=== PATIENT | female | born 1985 | race Caucasian/White ===

== ENCOUNTER → 2018-11-09 08:23 | Outpatient (CLI) | payer MEDICAID ==
[~2018-11-09 08:23] MED LIST: IBUPROFEN800 MG PO; PERCOCET 7.5/321 TAB PO; PREPLUS CA-FE1 EACH PO
[2019-01-31 19:42] VITALS: BMI 45.0
== END | disposition home or self-care (01) ==
LOC: D.LDO 08:23
PROVIDERS: ATTEND Obstetrics & Gynecology
DX: O36.8190 Decreased fetal movements, unspecified trimester, not applicable or unspecified (principal); Z3A.00 Weeks of gestation of pregnancy not specified

== ENCOUNTER → 2019-01-03 15:30 | Outpatient (CLI) | payer MEDICAID | END | disposition home or self-care (01) | LOC: D.LDO 15:30 | PROVIDERS: ATTEND Obstetrics & Gynecology | DX: O36.8190 Decreased fetal movements, unspecified trimester, not applicable or unspecified (principal) ==

== ENCOUNTER 2019-01-24 11:45 | Inpatient (IN) | payer MEDICAID ==
[~2019-01-24] VITALS: Ht 160 cm; Wt 112.5 kg
[2019-01-24] MEDS ORDERED: PREPLUS CA-FE1 EACH PO (11:58)
[2019-01-24 12:00] VITALS: BP 120/66; Ht 160 cm; Wt 112.5 kg
[2019-01-24 12:35] LABS: HEMATOCRIT 35.8 % (36.0-48.0); HEMOGLOBIN 12.5 g/dL (12-16); MCHC 34.9 g/dL (31.0-37.0); MCV 88.8 fL (80.0-100.0); MEAN PLATELET VOLUME 8.9 fL (7.4-10.4); RBC 4.03 10x6/uL (4.00-5.40); RDW 13.7 % (11.5-14.5); WBC 12.7 10x3/uL (4.8-10.8)
[2019-01-25 07:14] LABS: RAPID PLASMA REAGIN Non Reactive (Non Reactive)
== END 2019-01-25 15:40 | disposition home or self-care (01) | DRG 833 ==
LOC: D.LDO 11:45 → D.LD 11:58
PROVIDERS: ADMIT Obstetrics & Gynecology; ATTEND Obstetrics & Gynecology
PROC: 3E033VJ Introduction of Other Hormone into Peripheral Vein, Percutaneous Approach (ICD-10-PCS; principal; 2019-01-25)
DX: O61.0 Failed medical induction of labor (principal); Z3A.38 38 weeks gestation of pregnancy

== ENCOUNTER → 2019-01-28 08:20 | Outpatient (CLI) | payer MEDICAID ==
[2019-01-24 12:00] VITALS: BMI 44.0
== END | disposition home or self-care (01) ==
LOC: D.LDO 08:20
PROVIDERS: ATTEND Obstetrics & Gynecology
DX: O26.893 Other specified pregnancy related conditions, third trimester (principal); Z3A.39 39 weeks gestation of pregnancy

== ENCOUNTER 2019-01-31 15:35 | Inpatient (IN) | payer MEDICAID ==
[~2019-01-31] VITALS: Ht 160 cm; Wt 115.2 kg
[~2019-01-31 15:35] MED LIST changes: -IBUPROFEN800 MG PO; -PERCOCET 7.5/321 TAB PO
[2019-01-31 16:23] LABS: BASOPHILS 0.1 % (0-2); EOSINOPHILS 0.9 % (0-7); HEMATOCRIT 36.9 % (36.0-48.0); IMMATURE GRANULOCYTES 0.3 % (0-5); LYMPHOCYTES 18.8 % (15-50); MCHC 35.2 g/dL (31.0-37.0); MCV 88.1 fL (80.0-100.0); MEAN PLATELET VOLUME 8.8 fL (7.4-10.4); MONOCYTES 5.4 % (2-11); NEUTROPHILS 74.5 % (40-80); PLATELET COUNT 257 10x3/uL (130-400); RBC 4.19 10x6/uL (4.00-5.40); RDW 13.6 % (11.5-14.5); WBC 12.7 10x3/uL (4.8-10.8)
[2019-01-31 16:31] LABS: APPEARANCE CLOUDY (CLEAR); BILIRUBIN NEGATIVE (NEGATIVE); COLOR YELLOW (YELLOW); GLUCOSE NEGATIVE (NEGATIVE); KETONE NEGATIVE (NEGATIVE); NITRITE NEGATIVE (NEGATIVE); PROTEIN TRACE mg/dL (NEGATIVE); UROBILINOGEN NORMAL (NORMAL)
[2019-01-31 16:33] LABS: AMORPHOUS SEDIMENT <1+ /lpf (NONE SEEN); BACTERIA MODERATE /hpf (NONE SEEN); RED CELLS - URINE 0-5 /hpf (0-5); WHITE CELLS - URINE 0-5 /hpf (0-5)
[2019-01-31 17:06] LABS: ALBUMIN 2.4 g/dL (3.4-5.0); ALKALINE PHOSPHATASE 92 U/L (46-116); ALT (SGPT) 13 U/L (10-68); BILIRUBIN - INDIRECT 0.18 mg/dL (0.00-1.00); CALC OSMOLALITY 277 mosm/kg (275-300); CALCIUM 9.1 mg/dL (8.5-10.1); CARBON DIOXIDE 25.6 mmol/L (21.0-32.0); CHLORIDE - SERUM 106 mmol/L (98-107); CREATININE - SERUM 0.7 mg/dL (0.6-1.3); GLUCOSE 115 mg/dL (74-106); POTASSIUM - SERUM 3.7 mmol/L (3.5-5.1); PROTEIN - SERUM 5.8 g/dL (6.4-8.2); SODIUM 140 mmol/L (136-145); UREA NITROGEN 7 mg/dL (7-18); URIC ACID 4.3 mg/dL (2.6-7.2); eGFR NON AFRICAN AMERICAN > 90 mL/min (90-120)
[2019-01-31 17:14] LABS: BILIRUBIN - DIRECT 0.02 mg/dL (0.00-0.30)
[2019-01-31 19:42] VITALS: BP 119/61; Ht 160 cm; Wt 115.2 kg
[2019-02-01 08:11] LABS: RAPID PLASMA REAGIN Non Reactive (Non Reactive)
[2019-02-02] VITALS (10 sets, daily range): BP systolic 120–144; BP diastolic 58–87
--- NOTE | 2019-02-02 19:05 | NUR ---
BABY BORN AT 89
--- NOTE | 2019-02-02 19:34 | NUR ---
REC'D BACK TO ROOM 1278 FROM PACU. ALERT AND ORIENTED X3. VSS. FUNDUS FIRM, MIDLINE AND U1 WITH SCANT RUBRA LOCHIA, NO CLOTS NOTED. 800 MLS CLEAR LIGHT YELLOW URINE EMPTIED FROM TOSCANO. BREATH SOUNDS CLEAR AND EQUAL BILATERALLY. PAIN 3-4/10, DENIES NEED FOR INTERVENTION AT THIS TIME, REPORTS THAT TORADOL HAS HELPED PAIN ALREADY. SCD'S PLACED TO BLE. 2+ BLE EDEMA NOTED. PIV TO R HAND INFUSING WITH LR, NO S/S OF INFILTRATION NOTED. BOWEL SOUNDS HYPOACTIVE X4 QUADRANTS. DRSG TO LOWER TRANSVERSE ABD INCISION, CLEAN DRY AND INTACT WITH NO DRAINAGE NOTED. INSTRUCTED ON INCENTIVE SPIROMETER USE WITH RETURN DEMONSTRATION FROM PT X3 WITH GOOD EFFORT. EDUCATED ON IMPORTANCE OF TURN COUGH AND DEEP BREATHING Q 2HR, VERBALIZES UNDERSTANDING. COUGH AND DEEP BREATHING DONE WITH GOOD EFFORT. INFANT TO ROOM BY NBN RN, PT REQUESTING TO BF AND REQUESTING ASSISTANCE WITH BF. UNABLE TO FEEL BLE OR LIFT OFF OF BED AT THIS TIME. BED IN LOW POSITION WITH UPPER SIDE RAILS RAISED X2. CALL LIGHT AND PHONE WITHIN REACH. WILL CONTINUE TO MONITOR.
--- NOTE | 2019-02-02 19:51 | NUR ---
V/S REMAIN STABLE. PT BF . FUNDUS REMAINS FIRM, MIDLINE AND U1 WITH SCANT RUBRA LOCHIA, NO CLOTS NOTED. DENIES NAUSEA. ICE WATER PROVIDED AND ENCOURAGED TO SIP SLOWLY. PAIN 5/10, ABD SORENESS AND TENDERNESS, DENIES NEED FOR INTERVENTION. POC DISCUSSED WITH PT, VERBALIZES UNDERSTANDING AND STATES THAT SHE WILL NOTIFY RN WHEN PAIN MEDS ARE NEEDED. REFUSES NICOTINE PATCH AT THIS TIME. RYAN PEDERSON RN REMAINS AT BEDSIDE ASSISTING PT WITH BF.
--- NOTE | 2019-02-02 19:55 | NUR ---
NS WITH 20 UNITS OF PIT HUNG TO INFUSE AT 125 MLS/HR PER ORDER. PT CONTINUES TO BF . ICE PACK PLACED PER ORDER.
--- NOTE | 2019-02-02 20:01 | NUR ---
BF INFANT AT THIS TIME. RYAN PEDERSON RN AT BEDSIDE EDUCATING AND ASSIST PT WITH BF. PT DENIES NEEDS AT THIS TIME.
--- NOTE | 2019-02-02 20:35 | NUR ---
V/S REMAIN STABLE. FUNDUS REMAINS FIRM, MIDLINE AND U1 WITH SMALL RUBRA LOCHIA, NO CLOTS NOTED. DONE BF. 200 MLS CLEAR LIGHT YELLOW URINE EMPTIED FROM TOSCANO. PAIN 3-4/10 AT REST, DENIES NEED FOR INTERVENTION. COUGH, DEEP BREATHING, AND INCENTIVE SPIROMETER DONE WITH GOOD EFFORT. PERICARE DONE, PERIPADS CHANGED. DENIES NEEDS. CONTINUES TO CALERO WITH . WILL CONTINUE TO MONITOR. BED IN LOW POSITION WITH UPPER SIDE RAILS RAISED X2. CALL LIGHT AND PHONE WITHIN REACH. PT NOW ABLE TO LIFT FEET OFF OF BED WITH EFFORT.
--- NOTE | 2019-02-02 20:41 | NUR ---
SIGNIFICANT OTHER TO BEDSIDE.
--- NOTE | 2019-02-02 20:42 | NUR ---
SIGNIFICANT OTHER CALLED VIA CELL PHONE NUMBER PROVIDED PER PT REQUEST TO NOTIFY THAT SHE HAD COMPLETED BF AND SHE WAS READY FOR VISITOR.
--- NOTE | 2019-02-02 21:20 | NUR ---
VSS. FUNDUS REMAINS FIRM MIDLINE AND U1 WITH MODERATE AMT RUBRA LOCHIA. GOLF BALL SIZED CLOT PASSED WITH MASSAGE. PERICARE DONE. TOWELS, CHUX AND PERIPADS CHANGED. INCENTIVE SPIROMETER DONE X2, COUGH AND DEEP BREATHING DONE WITH GOOD EFFORT. REPOSITIONED FROM BACK TO LEFT SIDE WITH PILLOW BEHIND BACK FOR COMFORT AND SUPPORT. SCD'S REMAIN ON BLE. FOB AT BEDSIDE BONDING WITH , SUPPORTIVE AND ATTENTIVE TO PT AND INFANT NEEDS. CHICKEN BROTH, ICE WATER, JELLO, AND POPICLE PROVIDED PER REQUEST. DENIES ADDITIONAL NEEDS. BED IN LOW POSITION WITH UPPER SIDE RAILS RAISED X2. CALL LIGHT AND PHONE WITHIN REACH. WILL CONTINUE TO MONITOR.
--- NOTE | 2019-02-02 21:50 | NUR ---
INFANT CRYING IN OPEN CRIB, ROOTING NOTED. HANDED TO PT AND ASSISTED WITH LATCHING FOR BF PER PT REQUEST. GOOD LATCH, SUCK AND SWALLOW NOTED. PT REPORTS THAT SIGNIFICANT OTHER WENT TO GET HER A DRINK FROM [employer]. C/O ABD PAIN AND SORENESS 6-12/12, PAIN MEDICATION OPTIONS DISCUSSED. REQUEST IV DILAUDAD.
--- NOTE | 2019-02-02 22:01 | NUR ---
C/O ABD SORENESS AND CRAMPING 12/12. HYDROMORPHONE GIVEN PER ORDER AND REQUEST. EDUCATED ON MED AND POSSIBLE SIDE EFFECTS. VERBALIZES UNDERSTANDING. BF INFANT AT THIS TIME. RN REMAINS AT BEDSIDE PT WHILE BF INFANT D/T PT REPORTING FEELING LIKE SHE WAS DIZZY AND DROWSY.
--- NOTE | 2019-02-02 22:25 | NUR ---
THIS RN REMAINED AT BEDSIDE WITH PT WHILE BF. BF COMPLETED AT THIS TIME AND TO NBN. PAIN REASSESSMENT, 0. PT REPORTS THAT SHE IS GOING TO SLEEP WHILE INFANT IS GETTING BATH. 325 MLS CLEAR LIGHT YELLOW URINE EMPTIED FROM TOSCANO. VSS. FUNDUS FIRM MIDLINE AND U1 WITH SMALL AMT RUBRA LOCHIA. ICE WATER AND ICE PACK PROVIDED. DENIES ADDITIONAL NEEDS. LIGHTS OFF. SCD'S ON BLE. BED IN LOW POSITION WITH UPPER SIDE RAILS RAISED X2. CALL LIGHT AND PHONE WITHIN REACH. REPORTS THAT SHE CAN FEEL UP TO KNEES AND CAN NOW LIFT BLE OFF OF BED WITHOUT EFFORT. WILL CONTINUE TO MONITOR.
--- NOTE | 2019-02-02 23:36 | NUR ---
RESTING QUIETLY IN BED IN SEMI-FOWLERS POSITION. REPOSITIONED INDEPENDENTLY FROM LEFT SIDE TO BACK. PERICARE DONE, PADS CHANGED. VSS. PAIN 3/10, DENIES NEED FOR INTERVENTION AT THIS TIME. FUNDUS FIRM, MIDLINE AND U1 WITH SMALL AMT RUBRA LOCHIA. 200 MLS EMPTIED FROM TOSCANO, CLEAR LIGHT YELLOW URINE. REQUEST NICOTINE PATCH, PLACED TO RIGHT UPPER ARM. EDUCATED ON PATCH AND POSSIBLE SIDE EFFECTS WELL IMPORTANCE OF REMOVING PATCH BEFORE PLACING ANOTHER PATCH OR SMOKING CIGARETTES, VERBALIZES UNDERSTANDING. NBN CALLED TO CHECK ON , PT UPDATED. SCD'S TO BLE. LOWER TRANSVERSE ABD INCISION REMAINS COVERED WITH DRSG, DRSG REMAINS CLEAN DRY AND INTACT WITH NO DRAINAGE. ICE PACK REPLACED. JELLO, ICE PACK, AND ICE WATER PROVIDED PER PT REQUEST. DENIES ADDITIONAL NEEDS. BED IN LOW POSITION WITH UPPER SIDE RAILS RAISED X2. CALL LIGHT AND PHONE WITHIN REACH. WILL CONTINUE TO MONITOR.
[2019-02-03 00:31] VITALS: BP 136/74
--- NOTE | 2019-02-03 00:31 | NUR ---
BONDING WITH INFANT AND CONVERSING WITH VISITOR. VSS. FUNDUS REMAINS FIRM, MIDLINE AND U1 WITH SMALL AMT RUBRA LOCHIA, NO CLOTS. DENIES NEEDS AT THIS TIME. SCD'S REMAIN ON BLE. INCENTIVE SPIROMETER USED X6 WITH GOOD EFFORT. COUGH AND DEEP BREATHING DONE WITH GOOD EFFORT. ABLE TO MOVE BLE INDEPENDENTLY. DENIES NEEDS. BED IN LOW POSITION WITH UPPER SIDE RAILS RAISED X2. CALL LIGHT AND PHONE WITHIN REACH. WILL CONTINUE TO MONITOR.
--- NOTE | 2019-02-03 00:50 | NUR ---
ANCEF NOT AVAILABLE ON UNIT FOR RN TO PULL. GLOBAL FIND DONE BY THIS RN, MED AVAILABLE ON MED 2, ICU, OP, AND OR. CHINTAN ABRAMSEDUCATIONAL ADVISOR NOTIFIED AND WILL BRING MED TO UNIT.
--- NOTE | 2019-02-03 01:19 | NUR ---
TORADOL GIVEN PER ORDER. PAIN 3/10, ABD CRAMPING, ACHING, AND SORENESS. VSS. FUNDUS REMAINS FIRM, MIDLINE AND U1 WITH SMALL AMT RUBRA LOCHIA, NO CLOTS NOTED. IN FOB ARMS. ICE WATER PROVIDED PER PT REQUEST. DENIES ADDITIONAL NEEDS. BED IN LOW POSITION WITH UPPER SIDE RAILS RAISED X2. CALL LIGHT AND PHONE WITHIN REACH. WILL CONTINUE TO MONITOR.
--- NOTE | 2019-02-03 01:52 | NUR ---
ALIZA, PEDIATRIC CARE COORDINATOR ON UNIT WITH ANCEF.
--- NOTE | 2019-02-03 01:58 | NUR ---
ANCEF HUNG PER ORDER. PT INDEPENDENTLY REPOSITIONED FROM BACK TO RIGHT TO SIDE. REPORTS THAT SHE USED INCENTIVE SPIROMETER AND DID COUGHING AND DEEP BREATHING AND PAIN HAS INCREASED TO 8/10. REQUESTS PO PAIN MED INSTEAD OF IV PAIN MEDS, STATES THAT HYDROMORPHONE MADE HER TO DROWSY AND DIZZY. PERCOCET 10/325 GIVEN PER ORDER AND PT REQUEST. EDUCATED ON MED, VERBALIZES UNDERSTANDING. TOSCANO D/C'D WITH 220 MLS YELLOW URINE EMPTIED. INSTRUCTED ON USING CALL FOR ASSISTANCE OOB THE FIRST TIME, VERBALIZES UNDERSTANDING AND DENIES QUESTIONS. RESTING IN OPEN CRIB AT BEDSIDE. SIGNIFICANT OTHER AT BEDSIDE SUPPORTIVE AND ATTENTIVE TO PT AND NEEDS. BED IN LOW POSITION. CALL LIGHT AND PHONE WITHIN REACH. WILL CONTINUE TO MONITOR.
--- NOTE | 2019-02-03 02:43 | NUR ---
ANCEF INFUSION COMPLETED. RT HAND PIV SL. BF AT THIS TIME. PAIN REASSESSMENT COMPLETED, 1-07/15. DENIES NEED FOR ADDITIONAL INTERVENTION. SIGNIFICANT OTHER RESTING QUIETLY ON COUCH. DENIES NEED. BED IN LOW POSITION WITH UPPER SIDE RAILS RAISED X2. CALL LIGHT AND PHONE WITHIN REACH. WILL CONTINUE TO MONITOR.
--- NOTE | 2019-02-03 03:25 | NUR ---
CONTINUES TO BF INFANT. DENIES NEEDS AND PAIN. WILL CONTINUE TO MONITOR.
--- NOTE | 2019-02-03 04:36 | NUR ---
UP TO BR TO VOID. VOIDED 500 MLS IN HAT. HALF DOLLAR SIZED CLOT IN HAT FOLLOWING VOID. PERICARE DONE PER PT. PERIPADS AND PANTIES PROVIDED. GOWN AND LINENS CHANGED. ORAL CARE PER PT. COMPLAINED OF DIZZINESS WHILE IN BR, ENCOURAGED TO TAKE SLOW DEEP BREATHS, REPORTS THAT DIZZINESS SUBSIDED AMBULATED TO COUCH IN ROOM, REQUEST TO SIT ON COUCH WITH SIGNIFICANT OTHER. DENIES DIZZINESS. SIGNIFICANT OTHER STATES THAT HE WILL REMAIN WITH PT AND CALL FOR ASSISTANCE IF PT C/O DIZZINESS. CALL LIGHT AND PHONE PLACED WITHIN REACH. OF PT. DENIES ADDITIONAL NEEDS. INFANT PLACED IN MOM'S ARM PER REQUEST.
[2019-02-03 05:34] VITALS: BP 113/64
--- NOTE | 2019-02-03 05:34 | NUR ---
PT BACK TO BED WITH STANDBY ASSIST. STEADY GAIT NOTED. DENIES DIZZINESS AT THIS TIME. VSS. C/O PAIN 7-01/12, ABD SORENESS, INCISIONAL BURNING AND STINGING, PERCOCET GIVEN PER PT REQUEST AND ORDER. REFUSES SCD'S AT THIS TIME. ICE WATER, ICE PACK AND CHOCOLATE PUDDING PROVIDED PER REQUEST. DENIES ADDITIONAL NEEDS. BED IN LOW POSITION WITH UPPER SIDE RAILS RAISED X2. CALL LIGHT AND PHONE WITHIN REACH. SIGNIFICANT OTHER RESTING ON COUCH. RYAN PEDERSON RN IN ROOM DISCUSSING CARE WITH PT. WILL CONTINUE TO MONITOR.
[2019-02-03 06:03] LABS: MCH 30.7 pg (26.0-34.0); MCHC 34.4 g/dL (31.0-37.0); MCV 89.4 fL (80.0-100.0); MEAN PLATELET VOLUME 8.8 fL (7.4-10.4); RBC 3.58 10x6/uL (4.00-5.40); RDW 13.8 % (11.5-14.5); WBC 12.7 10x3/uL (4.8-10.8)
--- NOTE | 2019-02-03 06:15 | NUR ---
PAIN REASSESSMENT COMPLETED. RESTING QUIETLY WITH EYES CLOSED IN SEMI-FOWLERS POSITION. RESP REGULAR AND UNLABORED, NO S/S OF DISTRESS NOTED. BED IN LOW POSITION WITH UPPER SIDE RAILS RAISED X2. CALL LIGHT AND PHONE WITHIN REACH. WILL CONTINUE MONITOR AND ASSIST PRN.
--- NOTE | 2019-02-03 06:39 | NUR ---
SCHEDULED TORADOL GIVEN PER ORDER. RESTING QUIETLY WITH EYES CLOSED IN SEMI FOWLERS POSITION. AROUSES EASILY TO VOICE. DENIES PAIN AND NEEDS. BED IN LOW POSITION WITH UPPER SIDE RAILS RAISED X2. CALL LIGHT AND PHONE WITHIN REACH.
--- NOTE | 2019-02-03 06:50 | NUR ---
REPORT GIVEN TO Familia BURT
--- NOTE | 2019-02-03 07:00 | NUR ---
ASSUMED CARE OF THIS PATIENT. CURRENTLY SLEEPING. RESP EVEN. FOB SLEEPING ON COUCH. WILL COMPLETE SHIFT ASSESSMENT WHEN AWAKE.
--- NOTE | 2019-02-03 07:40 | NUR ---
SITTING UP IN BED HOLDING . WAITING ON NURSERY RN TO RETURN TO HELP WITH . SAYS INFANT DOESN'T WANT TO WAKE UP. EXPLAINED THAT IS NOT UNCOMMON IN FIRST 24 HOURS AFTER DELIVERY. DISCUSSED WAYS TO WAKE UP. ALSO DISCUSSED COLOSTRUM PRODUCTION. SHE WILL TRY TO WAKE UP. TO CALL IF ANYTHING IS NEEDED. FOB SLEEPING ON COUCH. WILL COMPLETE ASSESSMENT AFTER BREAKFAST AND . SIDE RAILS UP X 2, CALL LIGHT IN REACH. REGULAR BREAKFAST AT BEDSIDE.
[2019-02-03 08:34] VITALS: BP 107/54
--- NOTE | 2019-02-03 08:34 | NUR ---
SHIFT ASSESSMENT COMPLETED. ICE PACK IN PLACE OVER LTCS ABD DRESSING. 0/10 PAIN. SCD'S REPLACED ON LE. NO REQUESTS. SLEEPING IN CRIB. SIDERAILS UP X 2, CALL LIGHT IN REACH. FOB SLEEPING ON COUCH. DESIRES TO SLEEP AT THIS TIME. LIGHTS TURNED ON LOW. TO CALL IF ANYTHING IS NEEDED.
--- NOTE | 2019-02-03 10:10 | NUR ---
SITTING UP IN BED HOLDING IN ARMS. INFANT IS SLEEPING, PT ASKED IF SHE SHOULD WAKE UP TO FEED, INSTRUCTED PT IF TIME TO EAT THEN IT IS OK TO WAKE HER UP AND TRY. DISCUSSED METHODS TO WAKE INFANT UP. DENIES PAIN OR NEEDING ANYTHING AT THIS TIME. SIDERAILS UP X 2, CALL LIGHT IN REACH. TO CALL WHEN READY TO GET OOB OR IF NEEDING ANYTHING. FOB SLEEPING ON COUCH.
--- NOTE | 2019-02-03 11:13 | NUR ---
PERCOCET 5 MG GIVEN PO FOR RELIEF OF 3-4/10 INCISIONAL PAIN. ANTIOBITIC COMPLETE, SALINE LOCK FLUSHED WITH NS. ASSISTED UP TO AMBULATE TO BATHROOM VOIDED 600 ML URINE, LOCHIA RUBRA SMALL TO MOD. PERICARE DONE WITH WARM WATER, CLEAN PADS X 2 PLACED AND CLEAN UNDERWEAR GIVEN. AMBULATED BACK TO COUCH TO TRY TO FEED AGAIN. FOB AWAKE SITTING ON COUCH HOLDING INFANT. WILL SHOWER AND AMBULATE IN WALKER AFTER LUNCH. DR SOL CALLED EARLIER AND WILL BE IN LATER TO DAY TO MAKE ROUNDS.
--- NOTE | 2019-02-03 13:48 | NUR ---
RETURNED TO BED AFTER SITTING UP ON COUCH. C/O UPPER ABD GAS PAIN AND SLIGHT NAUSEA. VOIDED WITHOUT DIFF PRIOR TO RETURNING TO BED. SCHEDULED TORADOL 30 MG GIVEN IVP, SALINE LOCK FLUSHED AFTER MED. MYLICON 80 MG GIVEN PO FOR RELIEF OF GAS. POSITIONED TO LEFT SIDE WITH HOB FLAT. TO NURSERY PER PT REQUEST. DESIRES TO REST NOW. 3/10 PAIN. WILL AMBULATE AND SHOWER AFTER NAP. NO CURRENT VISITORS IN ROOM. SIDERAILS UP X 2, CALL LIGHT IN REACH. TO CALL IF ANYTHING IS NEEDED. VERBALIZED UNDERSTANDING.
[2019-02-03 13:50] VITALS: BP 120/59
--- NOTE | 2019-02-03 14:40 | NUR ---
SLEEPING ON LEFT SIDE, RESPIRATIONS EVEN. INFANT IN NURSERY. SIDE RAILS X 2 UP, CALL LIGHT IN REACH. NO CURRENT VISITORS.
--- NOTE | 2019-02-03 16:27 | NUR ---
AMBULATED IN WALKER WITH SPOUSE, EDWIN WELL, PASSED GAS WHILE AMBULATING. SHOWER COMPLETED. DRESSING REMOVED WHILE IN SHOWER. INSTRUCTED ON HOW TO CLEAN INCISION SITE. AFTER SHOWER ASSISTED WITH PLACING JACQUELINE-PAD OVER INCISION AND DISCUSSED IMPORTANCE OF CHANGING FREQUENTLY. INCISION INTACT WITH PAULA, CLEAN DRY, NO DISCHARGE NOTED, NO ERRYTHEMA NOTED. AFTER SHOWER, RETURNED TO [place] IN PREPARATION FOR . 1-2/ "BURNING" AT LEFT SIDE OF INCISION. EXPLAINED CAUSE OF THIS TYPE OF PAIN. DENIES NEEDING ANYTHING AT THIS TIME FOR PAIN. REGULAR DIET IN ROOM, INFANT BACK IN ROOM, FOB RETURNED TO ROOM. PARTIAL LINEN CHANGE COMPLETED. TO CALL IF ANYTHING IS NEEDED.
[2019-02-03 16:31] VITALS: BP 137/70
--- NOTE | 2019-02-03 17:40 | NUR ---
SITTING UP ON EDGE OF BED TALKING TO AND SKYPING. DENIES NEEDING ANYTHING FOR PAIN OR ANYTHING ELSE AT THIS TIME. IN CRIB. TO CALL IF ANYTHING IS NEEDED.
--- NOTE | 2019-02-03 18:09 | NUR ---
DR SOL ON L&D. ORDERS RECEIVED TO DC ANTIBIOTICS AND CHANGE TORADOL TO PO. DR SOL VISITED PATIENT.
--- NOTE | 2019-02-03 19:05 | NUR ---
REPORT REC'D FROM John LEMON RN. PT AMBULATORY ON UNIT AT THIS TIME WITH SIGNIFICANT OTHER. STEADY GAIT NOTED. STAFF INTRODUCED, DENIES NEEDS AT THIS TIME.
[2019-02-03 20:01] VITALS: BP 134/81
--- NOTE | 2019-02-03 20:01 | NUR ---
SHIFT ASSESSMENT COMPLETED PER FLOWSHEET. VSS. PAIN 3-4/10, ABD CRAMPING AND SORENESS WITH INCISIONAL BURNING AND STINGING. TORADOL GIVEN PER ORDER, DENIES NEED FOR ADDITIONAL PAIN MEDICATION AT THIS TIME. REPORTS THAT SHE IS VOIDING AND PASSING FLATUS WITHOUT DIFFICULTY. BOWEL SOUNDS PRESENT AND ACTIVE X4 QUADRANTS. LOWER TRANSVERSE ABD INCISION WELL APPROXIMANTED, PAULA INTACT, NO DRAINAGE OR S/S OF INFECTION NOTED. PT VERBALIZES INCISIONAL CARE, IMPORTANCE OF KEEPING PERIPAD OVER INCISION TO KEEP IT CLEAN AND DRY, AND SIGNS AND SYMPTOMS OF INFECTION. 2+ BLE EDEMA. ICE WATER PROVIDED. DENIES ADDITIONAL NEEDS. POC DISCUSSED WITH AND SIGNIFICANT OTHER, BOTH VERBALIZE UNDERSTANDING AND DENY QUESTIONS. RYAN PARKS COMMUNITY HEALTH EDUCATOR AT BEDSIDE WITH INFANT AT THIS TIME.
--- NOTE | 2019-02-03 20:42 | NUR ---
PAIN REASSESSMENT COMPLETED, 07/15. BONDING WITH INFANT. DENIES NEEDS AT THIS TIME. FOB AT BEDSIDE, SUPPORTIVE AND ATTENTIVE TO PT AND NEEDS. BED IN LOW POSITION WITH UPPER SIDE RAILS RAISED X2. CALL LIGHT AND PHONE WITHIN REACH. WILL CONTINUE TO MONITOR.
--- NOTE | 2019-02-03 21:18 | NUR ---
ROUNDS MADE. NICOTINE PATCH OFFERED AND REFUSED. DENIES NEEDS. ICE WATER PROVIDED. BED IN LOW POSITION WITH UPPER SIDE RAILS RAISED X2. CALL LIGHT AND PHONE WITHIN REACH. WILL CONTINUE TO MONITOR AND ASSIST PRN.
--- NOTE | 2019-02-03 22:21 | NUR ---
INFANT IN ARMS. PT SOBBING, REPORTS THAT SHE AND SIGNIFICANT OTHER HAVE BEEN ARGUING AND "HE LEFT TO COOL DOWN." REPORTS THAT HE WILL RETURN TO UNIT HE JUST WENT FOR A WALK. COOL WASH CLOTH PROVIDED. C/O PAIN 7-01/12, ABD SORENESS, CRAMPING AND INCISIONAL ACHING, BURNING AND STINGING. REQUESTS PERCOCET, PROVIDED PER REQUEST. CRANBERRY JUICE PROVIDED AND BACK TO N PER PT REQUEST. LIGHTS OFF AND PT ENCOURAGED TO REST. PT REQUESTS TO AMBULATE AND INSTRUCTED TO AMBULATE ON UNIT AND TO NOTIFY RN IF SHE BEGINS TO FEEL DROWSY OR DIZZY, VERBALIZES UNDERSTANDING. STEADY GAIT NOTED. BED IN LOW POSITION. WILL CONTINUE TO MONITOR.
--- NOTE | 2019-02-03 22:26 | NUR ---
SIGNIFICANT OTHER BACK ON UNIT, AMBULATING WITH PT. CONTINUE TO NOTE STEADY GAIT, PT DENIES DIZZINESS/DROWSINESS. WILL CONTINUE TO MONITOR.
--- NOTE | 2019-02-03 22:46 | NUR ---
BACK TO ROOM FROM AMBULATING ON UNIT. DENIES NEEDS AT THIS TIME. STATES THAT SHE AND SIGNIFICANT OTHER ARE GOING TO REST PRIOR TO NEXT FEEDING. IN NBN AT THIS TIME. REFUSES SCD'S. REPORTS THAT SHE CONTINUES TO PASS FLATUS, ABD NONDISTENDED. BED IN LOW POSITION WITH UPPER SIDE RAILS RAISED X2. CALL LIGHT AND PHONE WITHIN REACH. WILL CONTINUE TO MONITOR.
--- NOTE | 2019-02-04 00:13 | NUR ---
RESTING QUIETLY LAYING ON RIGHT SIDE WITH EYES CLOSED. RESP REGULAR AND UNLABORED, NO S/S OF DISTRESS NOTED. SIGNIFICANT OTHER RESTING ON COUCH AT BEDSIDE. WILL CONTINUE TO MONITOR AND ASSIST PRN. BED IN LOW POSITION WITH UPPER SIDE RAILS RAISED X2. CALL LIGHT AND PHONE WITHIN REACH.
[2019-02-04 01:59] VITALS: BP 119/56
--- NOTE | 2019-02-04 01:59 | NUR ---
VSS. FUNDUS FIRM, MIDLINE AND U2 WITH SCANT RUBRA LOCHIA, NO CLOTS NOTED. C/O ABD CRAMPING AND SORENESS WITH INCISIONAL BURNING AND STINGING 09/12. SCHEDULED TORADOL GIVEN PER ORDER AND PERCOCET PER PT REQUEST AND ORDER. ICE WATER PROVIDED. BACK TO NBN PER PT REQUEST. DENIES ADDITIONAL NEEDS. BED IN LOW POSITION WITH UPPER SIDE RAILS RAISED X2. CALL LIGHT AND PHONE WITHIN REACH. WILL CONTINUE TO MONITOR AND ASSIST PRN. SIGNIFICANT OTHER RESTING ON COUCH.
--- NOTE | 2019-02-04 02:45 | NUR ---
PAIN REASSESSMENT COMPLETED. RESTING QUIETLY IN SEMI-FOWLERS POSITION. RESPIRATIONS REGULAR AND UNLABORED, NO S/S OF DISTRESS NOTED. BED IN LOW POSITION WITH UPPER SIDE RAILS RAISED X2. CALL LIGHT AND PHONE WITHIN REACH.
--- NOTE | 2019-02-04 05:31 | NUR ---
DR. SOL AT BEDSIDE DISCUSSING POC WITH PT AND SIGNIFICANT OTHER.
[2019-02-04 05:55] VITALS: BP 115/60
--- NOTE | 2019-02-04 05:55 | NUR ---
VSS. DENIES PAIN AND NEEDS. BACK TO NBN PER PT REQUEST. BED IN LOW POSITION WITH UPPER SIDE RAILS RAISED X2. CALL LIGHT AND PHONE WITHIN REACH.
--- NOTE | 2019-02-04 07:57 | NUR ---
TO ROOM FOR AM ASSESSMENT, PT STILL SLEEPING AT THIS TIME. TURNED TO HER LEFT SIDE WITH RESP EVEN AND NO DISTRESS NOTED.
[2019-02-04] MEDS ORDERED: PERCOCET 7.5/321 TAB PO (07:59)
[2019-02-04] MEDS ORDERED: IBUPROFEN800 MG PO (07:59)
--- NOTE | 2019-02-04 09:00 | NUR ---
PT AWAKE AND UP TO VOID. IN CRIB AT BEDSIDE. DENIES CLOTS WITH VOIDS AND RATES PAIN AT 5/10. FUNDUS FIRM AT U/U, BIKINI INCISION CLEAN AND DRY WITH PAULA INTACT. LARGE ICE WATER REQUESTED. DENIES NEEDS AT THIS TIME. CALL LIGHT WITH IN HER REACH.
--- NOTE | 2019-02-04 11:30 | NUR ---
PAIN REASSESSMENT, PT RATES CRAMPING AT 3/10 AND DENIES NEED FOR ADDITIONAL MEDS AT THIS TIME.
--- NOTE | 2019-02-04 12:30 | NUR ---
LARGE CUP OF ICE PER REQUEST. DENIES ANY OTHER NEEDS AT THIS TIME.
--- NOTE | 2019-02-04 15:00 | NUR ---
VERBAL AND WRITTEN DISCHARGE INSTRUCTIONS GONE OVER WITH PT, SHE IS PROVIDED WITH WRITTEN SCRIPTS FOR PERCOCET 7.5/325MG AND MOTRIN 800MG. VERBALIZES HER UNDERSTANDING OF INCISION CARE AND THAT SHE IS TO HAVE PAULA REMOVED ON MONDAY. SECURED IN TO CARRIER, PT WILL CALL WHEN SHE IS READY FOR WHEELCHAIR.
--- NOTE | 2019-02-04 15:16 | NUR ---
TAKEN OUT BY WHEELCHAIR WITH SECURED IN CARRIER. HOME BY PRIVATE CAR WITH FAMILY.
--- NOTE | 2019-02-13 06:43 | OP ---
PATIENT NAME: SISSY ZAMORA MEDICAL RECORD: [id number] :[id number] LOCATION:[id number] ADMISSION DATE:01/31/19 SURGEON: OMER SOL MD DATE OF OPERATION: 02/02/2019 PREOPERATIVE DIAGNOSES: 1. Failed induction. 2. at 39 weeks' gestation. 3. -induced hypertension. POST-DELIVERY DIAGNOSES: 1. Failed induction. 2. at 39 weeks' gestation. 3. -induced hypertension. PROCEDURE: Primary low transverse section. SURGEON: Omer Sol MD OUTSIDE DEALER SALES REPRESENTATIVE: HUNG Johansen. ANESTHETIC: Continuous lumbar epidural. FINDINGS: Viable female infant in vertex presentation, Apgars 9 and 9 with weight 8 pounds 5 ounces. Some molding and caput on the vertex. Unremarkable uterus, tubes, and ovaries. Placenta is delivered via Crede maneuver and is unremarkable. SPECIMENS REMOVED: Placenta. SPECIMEN DISPOSITION: Discarded. ESTIMATED BLOOD LOSS: 800 cc. FLUIDS: 1400 cc of lactated Ringer's. URINE OUTPUT: 1100 cc of clear urine. COMPLICATIONS: None. DRAINS: [place] to gravity. INDICATION: The patient is a 33-year-old G1, para 0 at 39 weeks and 5 days upon admission. IMPRESSION: The patient is currently 39 and 6 and undergoing an induction of labor for -induced hypertension. The patient fails to dilate after rupture of membranes, and misoprostol and Pitocin. The patient is consented for a primary low transverse section for failed induction. DESCRIPTION OF PROCEDURE: After informed consent was assured, the patient was taken to the operating room where anesthetic was obtained. The patient is now prepped and draped and anesthetic assessment found to be adequate. A low transverse incision was made on the abdomen, carried down to the underlying layer of the fascia, which was opened in the midline and extended laterally. OPERATIVE REPORT [id number] SISSY ZAMORA The rectus bellies were and the peritoneum was entered. An Dean self-retaining retractor was inserted and tightened. A DeLee all-purpose retractor was now inserted to the incision and a bladder flap developed. A low transverse hysterotomy was now performed and the was delivered onto the abdomen atraumatically. Cord was doubly clamped and cut and the was passed to the attendant. The placenta was delivered via Crede maneuver. Uterus was exteriorized and cleared of all clot and debris. Uterus was now returned to the abdomen and the incision closed with a running locked stitch of chromic. Upon reaching the right side, the incision was noted to have extension into the right uterine artery and into the lower segment. This is closed with a separate portion of chromic stitch. An [place] stitch was also used at the right corner to obtain hemostasis. Pelvis was now irrigated and irrigant removed. Initial sponge count was correct. The rectus bellies were reapproximated in the midline. The fascia was now closed with looped PDS. The patient has greater than 3 cm of fat between skin and fascia and this space is now closed with plain gut ligature. [place] were applied. Sterile pressure dressing was placed over the incision and the patient went to the recovery room in stable condition. Sponge, lap, and needle counts correct times 2 at the close of this procedure. TRANSINT:[id number] Voice Confirmation ID: [id number] DOCUMENT ID: [id number] OMER SOL MD at 0643 CC: [id number] DICTATION DATE: 02/04/19522 CONSUMER SERVICES ADVISOR: 02/04/19901 DIS IN 02/04/19 [facility] [address] [place] [address]
== END 2019-02-04 15:16 | disposition home or self-care (01) | DRG 788 ==
LOC: D.LD 15:35
PROVIDERS: ADMIT Obstetrics & Gynecology; ATTEND Obstetrics & Gynecology
PROC: 3E033VJ Introduction of Other Hormone into Peripheral Vein, Percutaneous Approach (ICD-10-PCS; 2019-01-31)
PROC: 10907ZC Drainage of Amniotic Fluid, Therapeutic from Products of Conception, Via Natural or Artificial Opening (ICD-10-PCS; 2019-02-02)
PROC: 10D00Z1 Extraction of Products of Conception, Low, Open Approach (ICD-10-PCS; principal; 2019-02-02 17:01)
DX: O13.4 Gestational [pregnancy-induced] hypertension without significant proteinuria, complicating childbirth (principal); Z3A.39 39 weeks gestation of pregnancy; Z37.0 Single live birth; O61.9 Failed induction of labor, unspecified